=== PATIENT | female | born 2005 | race Two or more races ===

== ENCOUNTER 2025-06-18 17:11 | Emergency (ER) | payer MEDICAID, SELFPAY ==
[2025-06-18 17:21] VITALS: BP 138/87
--- NOTE | 2025-06-18 18:24 | ED.GENMED ---
History of Present Illness
General
Chief Complaint: Musculo-Skeletal Complaint
Source: patient
Exam Limitations: none
Time Seen by Provider: 06/18/25 17:55
Nursing documentation reviewed up to this point in time: agreed with
History of Present Illness
History of Present Illness:
Patient is a 20-year-old female who presents to the ER for right middle finger injury. Patient was walking her dog yesterday he tried to run after a squirrel. Her finger got caught in the leash and she has had right middle finger pain since. She
is right-hand dominant.
Phy Exam
General Physical Exam
General Presentation: no apparent distress
General age: appears stated age
General Skin: warm and dry
General Habitus: normal
General Mental: alert
General Hydration: appears well hydrated
Neurological Exam
Neurological Exam: alert
Musculoskeletal Exam
Musculoskeletal Exam: other (rue with strong pulses + swelling mild ecchymosis/tenderness to right hand middle finger distal phalynx; able to flex/extend, no abrasions/no lacerations intact distal sensation )
Skin Exam
Skin Exam: normal color and warm/dry
Psychiatric Exam
Psychiatric Exam: normal mood/affect
Course
Orders/Labs/Results
Orders:
Orders
06/18/25 17:25
Finger(s)/Thumb 2 View Rt [CR Finger(s)/thumb Min 2 Vw Rt] Urgent
Comment:
Reason For Exam: pain injury
Indicate Which Finger:: Middle Finger
Vital Signs
Initial and Last Documented VS:
Initial Vital Signs
Temp Pulse Resp BP Pulse Ox
98.3 F 77 16 138/87 99
06/18/25 17:21 06/18/25 17:21 06/18/25 17:21 06/18/25 17:21 06/18/25 17:21
Last Documented Vital Signs
Temp Pulse Resp BP Pulse Ox
98.3 F 77 16 138/87 99
06/18/25 17:21 06/18/25 17:21 06/18/25 17:21 06/18/25 17:21 06/18/25 18:25
MDM/Problems Addressed
Differential Diagnosis Includes:
Not limited to finger contusion versus fracture
MDM/Problems Addressed:
Patient with fracture to distal phalanx of right middle finger no lacerations. Will DC with finger splint with outpatient Ortho follow-up discussed NSAIDs and supportive care
*Radiology
Radiology exam reviewed: preliminary read by ED provider ( + fx distal phalynx) and radiology read reviewed
*Pulse Oximetry
SaO2: 99
Oxygen Mode of Delivery: Room air
Patient hypoxic: no
*Critical Care Note
Total Time (30-74mins, 75-104mins- exclusive of procedures): Not Applicable
ED Attending Note
-
Portions of this chart may have been created with voice recognition software.� Occasional wrong word or��sound alike� substitutions may have occurred due to the inherent limitations of voice recognition software.
Discharge Plan
Departure
Patient Disposition: Home (Routine Discharge)
Date of Disposition: 06/18/25
Time of Disposition: 18:30
Patient with high blood pressure during this ER visit?: Yes
Condition: Fair
Covid-19: Not Applicable
Discharge Problem:
Finger fracture, right
Instructions: Using Cold for Pain, Finger Fracture ED, BLOOD PRESSURE
Referrals:
Sheridan Ruth NP [Non-Admitting Privileges, General]
Stanley Ruth MD [Active, Orthopedics]
Activity Restrictions/Additional Instructions:
As discussed wear splint for support. splint for support .
ice the affected area for the next 24 hours 20 minutes at a time several times a day
Keep elevated as much as possible. Ibuprofen as needed every 8 hours with food.
Follow-up with orthopedics, hand specialist in the next several days for reevaluation.
return with any worsening of symptoms
Interventions
Interventions:
*Risk Screen - Suicide Last Done: 06/18/25 17:21
*Neglect/Abuse Screening Last Done: 06/18/25 17:21
*Nursing Disposition Last Done: 06/18/25 18:47
ED-Musculoskeletal Assessment Last Done: 06/18/25 18:46
Discharge Date and Time
Discharge Date/Time: 06/18/25 18:48
Print Language: MAORI
== END 2025-06-18 18:48 | disposition home or self-care (01) ==
LOC: EMR 17:11
PROVIDERS: EMERGENCY PHYSICIAN Emergency Medicine; FAMILY PHYSICIAN Internal Medicine
DX: S62.602A Fracture of unspecified phalanx of right middle finger, initial encounter for closed fracture (principal); X58.XXXA Exposure to other specified factors, initial encounter; Y93.K1 Activity, walking an animal
CPT/HCPCS: 99283; 29130; 73140